=== PATIENT | female | born 1995 | race Two or more races ===

== ENCOUNTER 2018-10-20 19:47 | Emergency (ER) | payer OTHER ==
[~2018-10-20] VITALS: Ht 162.6 cm; Wt 68.0 kg
[2018-10-20] MEDS ORDERED: LAMICTAL25 MG ORAL (19:57)
[2018-10-20] MEDS ORDERED: LAMICTAL150 MG ORAL (19:57)
[2018-10-20] MEDS ORDERED: ALBUTEROL2.5 MG/3 M INH (19:57)
[2018-10-20 20:00] VITALS: BP 114/57
--- NOTE | 2018-10-20 20:00 | NUR ---
ED Nurse Note: Patient walk in c/o SOB for 1x hour. Patient states she is having an asthma attack and has no inhaler. Patient has wheezing in bilateral lungs upon auscultation. Patient AOx4, VSS, ambulatory withs teady gait. Patient seen by YOSEPH at bedside.
[2018-10-20] MEDS ORDERED: Ipratropium 0.02% Inh Soln 2.5ml UD HHN ONE (20:15)
--- NOTE | 2018-10-20 20:15 | Emergency Room Report ---
History of Present Illness General Chief Complaint: Asthma Source: Patient Present Illness HPI 20-year-old female with history of asthma, reports he ran of rescue inhaler, also her Advair inhaler, has never been intubated, has not been on steroids recently, denies fevers, vomiting, any other complaints other than dry cough and wheezing. Allergies: Coded Allergies: No Known Allergies (Unverified , 10/20/18) Patient History Past Medical History: see triage record Last Menstrual Period: aug 2018 Now: No Reviewed Nursing Documentation: PMH: Agreed; PSxH: Agreed Nursing Documentation-PMH Hx Asthma: Yes Hx Seizures: Yes Review of Systems All Other Systems: negative except mentioned in HPI Physical Exam Vital Signs Date Time Temp Pulse Resp B/P (MAP) Pulse Ox O2 Delivery O2 Flow Rate FiO2 10/20/18 19:53 98.1 103 20 114/57 93 Room Air Sp02 EP Interpretation: reviewed, normal General Appearance: no apparent distress, alert, non-toxic Head: normocephalic Eyes: bilateral eye normal inspection, bilateral eye PERRL, bilateral eye EOMI ENT: normal ENT inspection, hearing grossly normal, normal pharynx, no angioedema, normal voice, moist mucus membranes Neck: normal inspection, full range of motion, supple, supple/symm/no masses Respiratory: chest non-tender, lungs clear, normal breath sounds, no rhonchi, no respiratory distress, accessory muscle use, speaking full sentences, wheezing , expiration, chest symmetrical, palpation of chest normal Cardiovascular #1: normal peripheral pulses, regular rate, rhythm, no edema, no gallop, no JVD, no murmur, no rub Cardiovascular #2: 2+ radial (R), 2+ radial (L) Gastrointestinal: normal inspection, non tender, soft, no mass, no guarding, no rebound Rectal: deferred Genitourinary: normal inspection, no CVA tenderness Musculoskeletal: back normal, gait/station normal, normal range of motion, non- tender, no calf tenderness Neurologic: alert, responsive, data sciences director III-XII nml as tested, motor strength/tone normal, sensory intact, speech normal Psychiatric: judgement/insight normal, memory normal, mood/affect normal, no suicidal/homicidal ideation Skin: normal color, no rash, warm/dry, normal turgor Lymphatic: no adenopathy Procedures Critical Care Time Critical Care Time 30 mins critical care time excluding all procedures due to need for continuous nebulizer treatments in the setting of severe asthma Medical Decision Making Diagnostic Impression: Primary Impression: Asthma ER Course Patient received continuous nebs, upon reevaluation lungs are much clearer, will give prednisone burst course, initial dose given here, and refill for inhaler, recommend PMD follow-up in 2 days Last Vital Signs Date Time Temp Pulse Resp B/P (MAP) Pulse Ox O2 Delivery O2 Flow Rate FiO2 10/20/18 19:53 98.1 103 20 114/57 93 Room Air Disposition: HOME, SELF-CARE Condition: Improved FREDDIE MASTERSON M.D Oct 20, 2018 20:15
[2018-10-20] MEDS ORDERED: ALBUTEROL2.5 MG/3 M HHN (20:17)
[2018-10-20] MEDS ORDERED: ALBUTEROL SULF8.5 GM INH (20:17)
[2018-10-20] MEDS ORDERED: PREDNISONE20 MG ORAL (20:17)
[2018-10-20] MEDS: Albuterol ud Inhalation HHN SCH ×2 (20:20→20:21)
[2018-10-20] MEDS ORDERED: Albuterol ud Inhalation HHN ONE (21:15)
[2018-10-20] MEDS ORDERED: Albuterol 90mcg Inhaler 8gm INH PRN (22:00)
[2018-10-20 22:10] VITALS: BP 123/62
--- NOTE | 2018-10-20 22:10 | NUR ---
ED Nurse Note: Patient cleared for discharge by YOSEPH. Patient AOx4, VSS, ambulatory with steady gait, no s/s of acute distress noted at this time. patient provided with discharge instructions and medication prescriptions. patient verbalized understanding. patient took all personal belongings withher. Patient has boyfriend at bedside to take her home. Patient instructed to follow up with PCP.
[2018-10-21] MEDS ORDERED: ADVAIR 250-501 EACH INH (10:32)
[2018-10-21] MEDS ORDERED: ALBUTEROL SULF8.5 GM INH (10:32)
[2018-10-21] MEDS ORDERED: PREDNISONE20 MG ORAL (10:32)
== END 2018-10-20 22:10 | disposition home or self-care (01) ==
LOC: EMR 22:01
DX: J45.909 Unspecified asthma, uncomplicated (principal)
CPT/HCPCS: 94640; 94664; 99284; J7512

== ENCOUNTER 2018-10-21 08:28 | Emergency (ER) | payer OTHER ==
[~2018-10-21] VITALS: Ht 162.6 cm; Wt 72.6 kg
[~2018-10-21 08:28] MED LIST: ALBUTEROL SULF8.5 GM INH; ALBUTEROL2.5 MG/3 M HHN; ALBUTEROL2.5 MG/3 M INH; LAMICTAL150 MG ORAL; LAMICTAL25 MG ORAL; PREDNISONE20 MG ORAL
--- NOTE | 2018-10-21 08:35 | NUR ---
ED Nurse Note: Patient walked into ED c/o trouble breathing that is getting worse since last night, pt has hx of asthma.
[2018-10-21 08:40] VITALS: BP 134/87
[2018-10-21] MEDS ORDERED: Albuterol ud Inhalation HHN ONE ×3 (08:45→10:30)
--- NOTE | 2018-10-21 09:19 | NUR ---
ED Nurse Note: patient received breathing tx and seen by YOSEPH, Monitor applied to pt.
--- NOTE | 2018-10-21 09:27 | NUR ---
ED Nurse Note: notified x-ray for cxr order/ rt for breathing tx.
--- NOTE | 2018-10-21 09:53 | NUR ---
ED Nurse Note: cxr taken, breathing tx given.
--- NOTE | 2018-10-21 10:28 | Emergency Room Report ---
History of Present Illness General Chief Complaint: Asthma Source: Patient Present Illness HPI This patient states that she has a history of asthma. She states she hasn't had a severe asthma exacerbation in a very long time. She states she ran out of her Advair Diskus. She states she has been out of this for about 2 weeks. She ran out because she had her primary care physician change and did not get the refills. She states she does have insurance now. She was seen last night and started on albuterol and prednisone but did not get the Advair. She states that she continues to feel short of breath and is unable to get control of her wheezing. She states just this morning she has developed cough with sputum production. She denies fever or chills. She denies nausea or vomiting. She has no other complaints. Allergies: Coded Allergies: No Known Allergies (Unverified , 10/20/18) Patient History Past Medical History: see triage record, asthma, seizures Social History: Denies: smoking, alcohol use, drug use Last Menstrual Period: 09/27/18 Now: No Reviewed Nursing Documentation: PMH: Agreed; PSxH: Agreed Nursing Documentation-PMH Past Medical History: No History, Except For Hx Asthma: Yes - pt takes advair Hx Seizures: Yes Review of Systems All Other Systems: negative except mentioned in HPI Physical Exam Vital Signs Date Time Temp Pulse Resp B/P (MAP) Pulse Ox O2 Delivery O2 Flow Rate FiO2 10/21/18 08:30 97.7 100 22 128/79 92 10/21/18 08:40 Room Air 10/21/18 08:57 21 Sp02 EP Interpretation: reviewed, normal General Appearance: no apparent distress, alert, GCS 15, non-toxic Head: normocephalic, atraumatic Eyes: bilateral eye normal inspection, bilateral eye PERRL ENT: hearing grossly normal, normal pharynx, no angioedema, normal voice Neck: full range of motion, supple/symm/no masses Respiratory: chest non-tender, no respiratory distress, no retraction, no accessory muscle use, speaking full sentences, wheezing, expiration Cardiovascular #1: regular rate, rhythm, no edema Gastrointestinal: normal bowel sounds, non tender, soft, non-distended, no guarding, no rebound Rectal: deferred Musculoskeletal: back normal, gait/station normal, normal range of motion, non- tender Neurologic: alert, oriented x3, responsive, motor strength/tone normal, sensory intact, speech normal Psychiatric: judgement/insight normal, memory normal, mood/affect normal, no suicidal/homicidal ideation Skin: normal color, no rash, warm/dry, well hydrated Medical Decision Making Diagnostic Impression: Primary Impression: Asthma exacerbation ER Course This patient has a clinical presentation consistent with asthma exacerbation. Patient has a history of asthma and has wheezing on physical exam. The patient was given albuterol nebulizer treatments. The patient was also given prednisone orally. The patient had significant improvement in subjective shortness of breath. The patient's lung exam improved significantly. I will also treat the patient with a course of antibiotics as this has been shown to improve the course of an asthma exacerbation. I will restart the patient's Advair Diskus. The patient was educated on the importance of a primary care physician. Chest x-ray showed no evidence of pneumonia. The patient was offered admission to the hospital, however, she states she wants to try going home and restarting her Advair discus and continuing the prednisone and albuterol. I did not make a patient go AGAINST MEDICAL ADVICE as she did not have any evidence of respiratory distress and overall was clinically well- appearing. Educated the patient that if she failed home treatment again today that she likely should be admitted to hospital on her next visit. She indicated understanding and intention to return if her symptoms worsen. The patient was given close return precautions and followup instructions. Chest X-Ray Diagnostic Results Chest X-Ray Diagnostic Results : Chest X-Ray Ordered: Yes # of Views/Limited/Complete: 1 View Indication: Shortness of Breath EP Interpretation: Yes Interpretation: no consolidation, no effusion, no pneumothorax, no acute cardiopulmonary disease Impression: No acute disease Electronically Signed by: Esther Mar DO Last Vital Signs Date Time Temp Pulse Resp B/P (MAP) Pulse Ox O2 Delivery O2 Flow Rate FiO2 10/21/18 09:40 21 10/21/18 09:40 98 22 98 Room Air 10/21/18 08:40 97.7 134/87 Status: improved Disposition: HOME, SELF-CARE Condition: Improved Referrals: NON PHYSICIAN (PCP) Patient Instructions: Asthma, Adult Esther Mar DO Oct 21, 2018 10:27
--- NOTE | 2018-10-21 10:29 | Diagnostic Imaging Report ---
Indication: Shortness of breath Technique: One view of the chest Comparison: Findings: Lungs and pleural spaces are clear. Heart size is normal Impression: No acute process
[2018-10-21] MEDS ORDERED: Ipratropium 0.02% Inh Soln 2.5ml UD HHN ONE (10:30)
[2018-10-21] MEDS ORDERED: ADVAIR 250-501 EACH INH (10:32)
[2018-10-21] MEDS ORDERED: ALBUTEROL SULF8.5 GM INH (10:32)
[2018-10-21] MEDS ORDERED: PREDNISONE20 MG ORAL (10:32)
[2018-10-21 10:56] VITALS: BP 116/68
[2018-10-21 11:01] VITALS: BP 116/68
--- NOTE | 2018-10-21 11:04 | NUR ---
ED Nurse Note: Patient is being discharged, cleared by ERMD Dr. Sloan. ID band removed. discharge paper/instructions given, explained patient about electronic prescription sent to the pharmacy across the street with the address written on the instruction paper, patient verbalized understanding. patient ambulated out of ED with steady gait with all belongings.
== END 2018-10-21 11:25 | disposition home or self-care (01) ==
LOC: EMR 09:24
DX: J45.901 Unspecified asthma with (acute) exacerbation (principal)
CPT/HCPCS: 71045; 94640; 99284; J7512